=== PATIENT | male | born 1960 | race Caucasian/White ===

== ENCOUNTER 2017-01-14 11:03 | Emergency (ER) ==
[2017-01-14 12:14] LABS: URINE MICRO REVIEW NEEDED? NO; URINE SOURCE CLEAN CATCH
[2017-01-14 12:14] LABS: MANUAL DIFF NEEDED? NO
[2017-01-14 12:21] LABS: BASO% 0.1 % (0.0-0.8); EOS# 0.03 X1000 (0.0-0.7); EOS% 0.3 % (0.0-10.0); HEMATOCRIT 32.9 % (42.0-52.0); HEMOGLOBIN 10.5 g/dL (14.0-18.0); LYMPH# 0.99 X1000 (1.2-3.4); LYMPH% 9.9 % (20.5-51.1); MCH 27.3 PG (27-31); MCHC 31.9 g/dL (33-37); MCV 85.5 FL (81-99); MONO# 1.22 X1000 (0.11-0.59); MONO% 12.2 % (1.7-9.3); MPV 10.4 FL (7.4-10.4); NEUT% 77.5 % (42.2-75.2); PLT 240 X1000 (130-400); RBC 3.85 XMIL (4.7-6.1)
[2017-01-14 12:25] LABS: BILIRUBIN URINE NEGATIVE (NEGATIVE); BLOOD URINE SMALL (NEGATIVE); COLOR YELLOW; GLUCOSE URINE NEGATIVE (NEGATIVE); LEUKOCYTES URINE SMALL (NEGATIVE); NITRITE URINE NEGATIVE (NEGATIVE); PROTEIN URINE 100 mg/dL (NEGATIVE); SP GRAVITY URINE 1.029; TURBIDITY URINE CLEAR (CLEAR); UR EPITHELIAL CELLS <10 /HPF (<10); URINE BACTERIA 2+ /HPF; URINE CULTURE NEEDED? YES; URINE RBC <10 /HPF (<10); UROBILINOGEN URINE 3 mg/dL (NORMAL)
[2017-01-14 12:33] LABS: INR 1.05; PROTIME 10.7 Seconds (9.2-11.7); PTT 34.7 Seconds (22.0-36.0)
[2017-01-14 12:34] LABS: AGAP 9; ALBUMIN 2.9 g/dL (3.5-5.0); ALKALINE PHOSPHATASE 118 U/L (32-122); BUN 13 mg/dL (8-22); CHLORIDE 100 mmol/L (98-107); COSMO 278; GOT 29 U/L (10-34); GPT 40 U/L (10-44); MAGNESIUM 1.7 mg/dL (1.5-2.7); POTASSIUM 3.2 mmol/L (3.5-5.1); SODIUM 137 mmol/L (136-145); TCO2 28 mmol/L (25-35); TOTAL BILIRUBIN 0.56 mg/dL (0.20-1.00); TOTAL PROTEIN 6.4 g/dL (6.3-8.3)
[2017-01-14] MEDS ORDERED: TYLENOL ONE (14:12)
[2017-01-14] MEDS ORDERED: TYLENOL PO ONE ×2 (14:15→19:46)
[2017-01-14 16:00] LABS: ALLEN TEST YES; BE 4.2 mmoll (-3.0-3.0); BLOOD TYPE ARTERIAL; DRAW SITE R RADIAL; METHB 2.1 % (0.0-1.5); PCO2(98.6) 40 mmHg (35-45); PO2(98.6) 83 mmHg (60-100); SAMPLE BLOOD; SAO2 97.3 % (95.0-100.0); THB 11.3 g/dL (11.5-17.4); pH(98.6) 7.46 (7.35-7.45)
[2017-01-14 16:03] LABS: MODALITY ROOM AIR
--- NOTE | 2017-01-14 16:11 | PROVIDER DOCUMENTATION ---
HPI-General Adult - General Source: patient, family - History of Present Illness -Gen Adult Nature of Presenting Problems: Pt is a 56 yom that had right knee replacement on January 04 reports pt came home from rehab on tuesday and has been doing good until a few days ago and reports pt on Tuesday had to go back to [facility] due to the percocet wasn't helping the pain and pt was talking out of his head. Pt reports ultrasound was done negative DVT. pt was sent home on and that since tuesday pt still talking out of his head. states subjective fever for past 2 days with weakness. reports that it hurts to walk on right knee. Pt reports he doesn't take eloquis anymore since surgery that he take two aspirin daily.Pt is febrile on arrival 102.9 Location of Pain/Injury: reports: lower extremity (right), generalized Quality of Pain: reports: aching Severity: reports: moderate Onset/Duration: reports: 2 days ago Timing: reports: still present Similar Symptoms Previously?: Yes Recently seen or treated by another doctor?: Yes <Marcos Asif - Last Filed: 01/14/17 17:49> <Jose Carlos Velazquez - Last Filed: 01/14/17 18:14> <Trey Chiu - Last Filed: 01/14/17 19:20> - General Chief Complaint: Post Op Complaint Stated Complaint: POST OP COMPLAINT Time Seen by Provider: 01/14/17 15:12 Allergies/Adverse Reactions: Patient Allergies Allergy/AdvReac Type Severity Reaction Status Date / Time No Known Allergies Allergy Verified 01/14/17 16:02 Home Medications: Home Medication List Medication Instructions Recorded Confirmed Last Taken Type Aspirin 325 mg PO DAILY 01/14/17 01/14/17 01/14/17 History Bupropion HCl [Bupropion HCl ER] 150 mg PO DAILY 01/14/17 01/14/17 01/14/17 History Diltiazem HCl [Cartia Xt] 180 mg PO DAILY 01/14/17 01/14/17 01/14/17 History Docusate Sodium [Colace] 100 mg PO BID PRN PRN 01/14/17 01/14/17 01/14/17 History Furosemide 40 mg PO DAILY PRN 01/14/17 01/14/17 Unknown History Hydrocodone/Acetaminophen [[place] 1 each PO Q4H PRN 01/14/17 01/14/17 01/14/17 History 10-325 Tablet] Imipramine HCl 25 mg PO QHS 01/14/17 01/14/17 01/13/17 History Lorazepam 0.5 mg PO TID PRN 01/14/17 01/14/17 Unknown History Meloxicam 15 mg PO DAILY 01/14/17 01/14/17 01/14/17 History Metaxalone 800 mg PO Q8H PRN 01/14/17 01/14/17 Unknown History Metoprolol Tartrate 50 mg PO BID 01/14/17 01/14/17 01/14/17 History Multivitamins/Minerals [Centrum 1 each PO DAILY 01/14/17 01/14/17 01/14/17 History Silver] Oxycodone HCl/Acetaminophen 1 each PO Q4H PRN 01/14/17 01/14/17 Unknown History [Percocet 10-325 mg Tablet] Pantoprazole [Protonix] 40 mg PO DAILY@0700 01/14/17 01/14/17 01/14/17 History Pioglitazone [Actos] 30 mg PO DAILY 01/14/17 01/14/17 01/14/17 History Potassium Chloride 10 meq PO DAILY PRN 01/14/17 01/14/17 Unknown History Pravastatin Sodium 80 mg PO QHS 01/14/17 01/14/17 01/13/17 History Promethazine [Phenergan] 25 mg PO Q6H PRN PRN 01/14/17 01/14/17 Unknown History Quetiapine Fumarate 50 mg PO QHS 01/14/17 01/14/17 01/13/17 History Ranitidine [Zantac] 150 mg PO BID PRN 01/14/17 01/14/17 Unknown History Ropinirole HCl [Requip] 8 mg PO QHS 01/14/17 01/14/17 01/13/17 History Solifenacin Succinate [Vesicare] 10 mg PO DAILY 01/14/17 01/14/17 01/14/17 History Sotalol HCl [Betapace AF] 80 mg PO BID 01/14/17 01/14/17 01/14/17 History Temazepam 30 mg PO QHS 01/14/17 01/14/17 01/13/17 History Review of Systems - Adult - REVIEW OF SYSTEMS - ADULT Constitutional: reports: fever, other (general weakness). denies: chills, fatique, night sweats, weight loss Eyes: reports: no symptoms reported Ears, Nose, Mouth & Throat: denies: ear pain, sinus problem, throat pain Cardiovascular: reports: no symptoms reported Respiratory: reports: no symptoms reported Gastrointestinal: denies: abdominal pain, difficulty swallowing, frequent heartburn, nausea Genitourinary: denies: dysuria, flank pain, frequent UTI's, hematuria, urgency Musculoskeletal: reports: see HPI, joint pain (right knee), muscle weakness. denies: frequent leg cramps, muscle aches, neck pain Integumentary: reports: no symptoms reported Neurological: reports: no symptoms reported Psychiatric: reports: no symptoms reported Endocrine: reports: no symptoms reported Hematologic/Lymphatic: reports: no symptoms reported Allergic/Immunologic: reports: no symptoms reported All Other Systems: Reviewed and Negative <Marcos Asif - Last Filed: 01/14/17 17:49> Past History - Adult - PAST MEDICAL HISTORY-ADULT Review of Records: reports: Nursing Assessment Review, Medications Reviewed Major Childhood Illnesses: reports: denies history Cardiovascular: reports: CAD, HTN, hyperlipidemia Respiratory: reports: denies history Gastrointestinal: reports: denies history Obstetrical/Gynecological: reports: denies history Genitourinary: reports: other (BPH) Musculoskeletal: reports: chronic pain (back and knees) Neurological: reports: denies history Endocrine/Immune: reports: Diabetes Other Conditions: reports: denies history - PRIOR SURGERIES/PROCEDURES Surgical/Procedure History: reports: orthopedic (extremity) (right and left knee ) - IMMUNIZATION STATUS Childhood Immunizations: See Nurse Assessment Flu Vaccine: See Nurse Assessment - SOCIAL HISTORY Smoking: denies Substance Use: alcohol Alcohol Use Frequency: 3-4 times a week <Marcos Asif - Last Filed: 01/14/17 17:49> Physical Exam-General - PHYSICAL EXAM-ADULT Initial Vital Signs Reviewed: Yes - CONSTITUTIONAL General Appearance: alert, mild distress, obese. negative: appears well - EYES Eyes: PERRL/EOMI - HEAD, EARS, NOSE, MOUTH & THROAT HENMT: moist mucous membranes, pharynx normal - RESPIRATORY Respiratory: chest non-tender, lungs clear, normal breath sounds, no pleuratic chest pain, no respiratory distress, no accessory muscle use - CARDIOVASCULAR Cardiovascular: tachycardia - GASTROINTESTINAL (ABDOMEN) Abdominal Exam: non tender, soft, no organomegaly, no pulsatile mass - MUSCULOSKELETAL Extremity: normal capillary refill, erythema (right knee mild erythema and warm to touch.), other (Effusion to right knee warm to touch erythemic.Healing surgical scar) Peripheral Pulses: dorsalis-pedis (R): 2+, dorsalis-pedis (L): 2+ - SKIN Integumentary: normal color, normal turgor, warm/dry - PSYCHIATRIC Psych/Mental Status: normal mood/affect, normal thought content, normal thought process <Marcos Asif - Last Filed: 01/14/17 17:49> Progress - PLAN OF CARE/RESULTS Progress/Plan/Lab Results: Orders Category Date Time Status Saline Loc NOW Care 01/14/17 11:32 Active EXTREM LOWER W/CONTRAST [CT] Stat Exams 01/14/17 15:54 Ordered ABG [RESP] Routine Lab 01/14/17 15:55 Completed BLOOD CULTURE [BLDCUL] Stat Lab 01/14/17 11:56 Results CBC WITH ELECTRONIC DIFF [HEME] Stat Lab 01/14/17 11:55 Completed COMPREHENSIVE METABOLIC PANEL [CHEM] Stat Lab 01/14/17 11:55 Completed CRP [C REACTIVE PROT QUANT] [CHEM] Stat Lab 01/14/17 11:55 Received MAGNESIUM [CHEM] Stat Lab 01/14/17 11:55 Completed PROTIME WITH INR [COAG] Stat Lab 01/14/17 11:55 Completed PTT [COAG] Stat Lab 01/14/17 11:55 Completed SED RATE [HEME] Stat Lab 01/14/17 11:55 Received URINALYSIS W/POSS RFLX CULT [URINALYSIS] Stat Lab 01/14/17 11:30 Completed URINE CULTURE [RM] Routine Lab 01/14/17 13:25 Received Acetaminophen [Tylenol] Med 01/14/17 14:15 Discontinued 325 mg PO NOW ONE Acetaminophen [Tylenol] Med 01/14/17 14:12 Discontinued 650 mg .ROUTE .STK-MED ONE Vital Signs - 24 hr 01/14/17 01/14/17 11:08 15:59 Temperature 102.9 F H 99.3 F Pulse Rate 118 H 93 H Respiratory 18 22 Rate Blood Pressure 133/62 153/79 O2 Sat by Pulse 96 100 Oximetry Laboratory Tests 01/14/17 01/14/17 01/14/17 11:30 11:55 11:55 WBC 9.97 RBC 3.85 L Hgb 10.5 L Hct 32.9 L MCV 85.5 MCH 27.3 MCHC 31.9 L RDW Std Deviation 14.5 Plt Count 240 MPV 10.4 Neut % (Auto) 77.5 H Lymph % (Auto) 9.9 L [place] % (Auto) 12.2 H Eos % (Auto) 0.3 Baso % (Auto) 0.1 Neut # (Auto) 7.72 H Lymph # (Auto) 0.99 L [place] # (Auto) 1.22 H Eos # (Auto) 0.03 Baso # (Auto) 0.01 PT 10.7 INR 1.05 PTT (Actin FS) 34.7 Specimen Type Sample Site pH pCO2 pO2 HCO3 Base Excess Oxyhemoglobin ABG O2 Sat (Calculated) ABG O2 Saturation ABG Carboxyhemoglobin ABG Methemoglobin Jose C Test A-a O2 Difference Total Hemoglobin Lactate Blood Gas Modality FiO2 % Sodium Potassium Chloride Carbon Dioxide Anion Gap BUN Creatinine Estimated GFR/1.73 m2 BUN/Creatinine Ratio Glucose Calculated Osmolality Calcium Magnesium Total Bilirubin AST ALT Alkaline Phosphatase Total Protein Albumin Globulin Albumin/Globulin Ratio Urine Source CLEAN CATCH Urine Color YELLOW Urine Turbidity CLEAR Urine pH 6.0 Ur Specific [place] 1.029 Urine Protein 100 A Ur Glucose (Stick) NEGATIVE Ur Ketones (Stick) NEGATIVE Urine Blood SMALL A Urine Nitrite NEGATIVE Urine Bilirubin NEGATIVE Urobilinogen Dipstick 3 A Urine Leukocytes SMALL A Urine WBC (Auto) 10-20 A Urine RBC (Auto) <10 U Epithel Cells (Auto) <10 Urine Bacteria (Auto) 2+ 01/14/17 01/14/17 11:55 15:55 WBC RBC Hgb Hct MCV MCH MCHC RDW Std Deviation Plt Count MPV Neut % (Auto) Lymph % (Auto) [place] % (Auto) Eos % (Auto) Baso % (Auto) Neut # (Auto) Lymph # (Auto) [place] # (Auto) Eos # (Auto) Baso # (Auto) PT INR PTT (Actin FS) Specimen Type ARTERIAL Sample Site R RADIAL pH 7.46 H pCO2 40 pO2 83 HCO3 28.1 H Base Excess 4.2 H Oxyhemoglobin 93.9 L ABG O2 Sat (Calculated) 15.0 ABG O2 Saturation 97.3 ABG Carboxyhemoglobin 1.40 ABG Methemoglobin 2.1 H Jose C Test YES A-a O2 Difference 17.0 Total Hemoglobin 11.3 L Lactate 1.20 Blood Gas Modality ROOM AIR FiO2 % 21.0 Sodium 137 Potassium 3.2 L Chloride 100 Carbon Dioxide 28 Anion Gap 9 BUN 13 Creatinine 0.9 Estimated GFR/1.73 m2 > 60 BUN/Creatinine Ratio 14 Glucose 171 H Calculated Osmolality 278 Calcium 8.0 L Magnesium 1.7 Total Bilirubin 0.56 AST 29 ALT 40 Alkaline Phosphatase 118 Total Protein 6.4 Albumin 2.9 L Globulin 3.5 Albumin/Globulin Ratio 0.8 Urine Source Urine Color Urine Turbidity Urine pH Ur Specific [place] Urine Protein Ur Glucose (Stick) Ur Ketones (Stick) Urine Blood Urine Nitrite Urine Bilirubin Urobilinogen Dipstick Urine Leukocytes Urine WBC (Auto) Urine RBC (Auto) U Epithel Cells (Auto) Urine Bacteria (Auto) Laboratory Tests 01/14/17 01/14/17 01/14/17 11:30 11:55 11:55 WBC 9.97 RBC 3.85 L Hgb 10.5 L Hct 32.9 L MCV 85.5 MCH 27.3 MCHC 31.9 L RDW Std Deviation 14.5 Plt Count 240 MPV 10.4 Neut % (Auto) 77.5 H Lymph % (Auto) 9.9 L [place] % (Auto) 12.2 H Eos % (Auto) 0.3 Baso % (Auto) 0.1 Neut # (Auto) 7.72 H Lymph # (Auto) 0.99 L [place] # (Auto) 1.22 H Eos # (Auto) 0.03 Baso # (Auto) 0.01 PT 10.7 INR 1.05 PTT (Actin FS) 34.7 Specimen Type Sample Site pH pCO2 pO2 HCO3 Base Excess Oxyhemoglobin ABG O2 Sat (Calculated) ABG O2 Saturation ABG Carboxyhemoglobin ABG Methemoglobin Jose C Test A-a O2 Difference Total Hemoglobin Lactate Blood Gas Modality FiO2 % Sodium Potassium Chloride Carbon Dioxide Anion Gap BUN Creatinine Estimated GFR/1.73 m2 BUN/Creatinine Ratio Glucose Calculated Osmolality Calcium Magnesium Total Bilirubin AST ALT Alkaline Phosphatase C-Reactive Prot, Quant Total Protein Albumin Globulin Albumin/Globulin Ratio Urine Source CLEAN CATCH Urine Color YELLOW Urine Turbidity CLEAR Urine pH 6.0 Ur Specific [place] 1.029 Urine Protein 100 A Ur Glucose (Stick) NEGATIVE Ur Ketones (Stick) NEGATIVE Urine Blood SMALL A Urine Nitrite NEGATIVE Urine Bilirubin NEGATIVE Urobilinogen Dipstick 3 A Urine Leukocytes SMALL A Urine WBC (Auto) 10-20 A Urine RBC (Auto) <10 U Epithel Cells (Auto) <10 Urine Bacteria (Auto) 2+ 01/14/17 01/14/17 01/14/17 11:55 11:55 15:55 WBC RBC Hgb Hct MCV MCH MCHC RDW Std Deviation Plt Count MPV Neut % (Auto) Lymph % (Auto) [place] % (Auto) Eos % (Auto) Baso % (Auto) Neut # (Auto) Lymph # (Auto) [place] # (Auto) Eos # (Auto) Baso # (Auto) PT INR PTT (Actin FS) Specimen Type ARTERIAL Sample Site R RADIAL pH 7.46 H pCO2 40 pO2 83 HCO3 28.1 H Base Excess 4.2 H Oxyhemoglobin 93.9 L ABG O2 Sat (Calculated) 15.0 ABG O2 Saturation 97.3 ABG Carboxyhemoglobin 1.40 ABG Methemoglobin 2.1 H Jose C Test YES A-a O2 Difference 17.0 Total Hemoglobin 11.3 L Lactate 1.20 Blood Gas Modality ROOM AIR FiO2 % 21.0 Sodium 137 Potassium 3.2 L Chloride 100 Carbon Dioxide 28 Anion Gap 9 BUN 13 Creatinine 0.9 Estimated GFR/1.73 m2 > 60 BUN/Creatinine Ratio 14 Glucose 171 H Calculated Osmolality 278 Calcium 8.0 L Magnesium 1.7 Total Bilirubin 0.56 AST 29 ALT 40 Alkaline Phosphatase 118 C-Reactive Prot, Quant 358.53 H Total Protein 6.4 Albumin 2.9 L Globulin 3.5 Albumin/Globulin Ratio 0.8 Urine Source Urine Color Urine Turbidity Urine pH Ur Specific [place] Urine Protein Ur Glucose (Stick) Ur Ketones (Stick) Urine Blood Urine Nitrite Urine Bilirubin Urobilinogen Dipstick Urine Leukocytes Urine WBC (Auto) Urine RBC (Auto) U Epithel Cells (Auto) Urine Bacteria (Auto) Laboratory Tests 01/14/17 01/14/17 01/14/17 11:30 11:55 11:55 WBC 9.97 RBC 3.85 L Hgb 10.5 L Hct 32.9 L MCV 85.5 MCH 27.3 MCHC 31.9 L RDW Std Deviation 14.5 Plt Count 240 MPV 10.4 Neut % (Auto) 77.5 H Lymph % (Auto) 9.9 L [place] % (Auto) 12.2 H Eos % (Auto) 0.3 Baso % (Auto) 0.1 Neut # (Auto) 7.72 H Lymph # (Auto) 0.99 L [place] # (Auto) 1.22 H Eos # (Auto) 0.03 Baso # (Auto) 0.01 ESR PT 10.7 INR 1.05 PTT (Actin FS) 34.7 Specimen Type Sample Site pH pCO2 pO2 HCO3 Base Excess Oxyhemoglobin ABG O2 Sat (Calculated) ABG O2 Saturation ABG Carboxyhemoglobin ABG Methemoglobin Jose C Test A-a O2 Difference Total Hemoglobin Lactate Blood Gas Modality FiO2 % Sodium Potassium Chloride Carbon Dioxide Anion Gap BUN Creatinine Estimated GFR/1.73 m2 BUN/Creatinine Ratio Glucose Calculated Osmolality Calcium Magnesium Total Bilirubin AST ALT Alkaline Phosphatase C-Reactive Prot, Quant Total Protein Albumin Globulin Albumin/Globulin Ratio Urine Source CLEAN CATCH Urine Color YELLOW Urine Turbidity CLEAR Urine pH 6.0 Ur Specific [place] 1.029 Urine Protein 100 A Ur Glucose (Stick) NEGATIVE Ur Ketones (Stick) NEGATIVE Urine Blood SMALL A Urine Nitrite NEGATIVE Urine Bilirubin NEGATIVE Urobilinogen Dipstick 3 A Urine Leukocytes SMALL A Urine WBC (Auto) 10-20 A Urine RBC (Auto) <10 U Epithel Cells (Auto) <10 Urine Bacteria (Auto) 2+ 01/14/17 01/14/17 01/14/17 11:55 11:55 11:55 WBC RBC Hgb Hct MCV MCH MCHC RDW Std Deviation Plt Count MPV Neut % (Auto) Lymph % (Auto) [place] % (Auto) Eos % (Auto) Baso % (Auto) Neut # (Auto) Lymph # (Auto) [place] # (Auto) Eos # (Auto) Baso # (Auto) ESR 87 H PT INR PTT (Actin FS) Specimen Type Sample Site pH pCO2 pO2 HCO3 Base Excess Oxyhemoglobin ABG O2 Sat (Calculated) ABG O2 Saturation ABG Carboxyhemoglobin ABG Methemoglobin Jose C Test A-a O2 Difference Total Hemoglobin Lactate Blood Gas Modality FiO2 % Sodium 137 Potassium 3.2 L Chloride 100 Carbon Dioxide 28 Anion Gap 9 BUN 13 Creatinine 0.9 Estimated GFR/1.73 m2 > 60 BUN/Creatinine Ratio 14 Glucose 171 H Calculated Osmolality 278 Calcium 8.0 L Magnesium 1.7 Total Bilirubin 0.56 AST 29 ALT 40 Alkaline Phosphatase 118 C-Reactive Prot, Quant 358.53 H Total Protein 6.4 Albumin 2.9 L Globulin 3.5 Albumin/Globulin Ratio 0.8 Urine Source Urine Color Urine Turbidity Urine pH Ur Specific [place] Urine Protein Ur Glucose (Stick) Ur Ketones (Stick) Urine Blood Urine Nitrite Urine Bilirubin Urobilinogen Dipstick Urine Leukocytes Urine WBC (Auto) Urine RBC (Auto) U Epithel Cells (Auto) Urine Bacteria (Auto) 01/14/17 15:55 WBC RBC Hgb Hct MCV MCH MCHC RDW Std Deviation Plt Count MPV Neut % (Auto) Lymph % (Auto) [place] % (Auto) Eos % (Auto) Baso % (Auto) Neut # (Auto) Lymph # (Auto) [place] # (Auto) Eos # (Auto) Baso # (Auto) ESR PT INR PTT (Actin FS) Specimen Type ARTERIAL Sample Site R RADIAL pH 7.46 H pCO2 40 pO2 83 HCO3 28.1 H Base Excess 4.2 H Oxyhemoglobin 93.9 L ABG O2 Sat (Calculated) 15.0 ABG O2 Saturation 97.3 ABG Carboxyhemoglobin 1.40 ABG Methemoglobin 2.1 H Jose C Test YES A-a O2 Difference 17.0 Total Hemoglobin 11.3 L Lactate 1.20 Blood Gas Modality ROOM AIR FiO2 % 21.0 Sodium Potassium Chloride Carbon Dioxide Anion Gap BUN Creatinine Estimated GFR/1.73 m2 BUN/Creatinine Ratio Glucose Calculated Osmolality Calcium Magnesium Total Bilirubin AST ALT Alkaline Phosphatase C-Reactive Prot, Quant Total Protein Albumin Globulin Albumin/Globulin Ratio Urine Source Urine Color Urine Turbidity Urine pH Ur Specific [place] Urine Protein Ur Glucose (Stick) Ur Ketones (Stick) Urine Blood Urine Nitrite Urine Bilirubin Urobilinogen Dipstick Urine Leukocytes Urine WBC (Auto) Urine RBC (Auto) U Epithel Cells (Auto) Urine Bacteria (Auto) - XRAY 1 XRAY: Right XRAY Study: Knee Impression: Abnormal (no fx. Cellulitis. small sprapetallar effusion. Questionalble 2cm area of vague increased denisty in the extensor digitorum lonus anteiror to the fibula head. May simply be an artifact but could reprsent a small fluid collection.) <Marcos Asif - Last Filed: 01/14/17 17:49> - CONSULTS/PCP/HOSPITALIST Notification #1 *Consult/PCP/Hospitalist*: Dr. Krishna (Hospitalist) Time Discussed: 18:04 Consult Disposition: Admit (Dr. Krishna requests a consult with pt's orthapedist before accepting pt for admit.) - CHANGE OF SHIFT REPORT (ED Provider) Report Given and Care Transferred to:: Dr. Alexis Time of Transfer: 18:00 Items Pending: Physician Consult/Arrival <Jose Carlos Velazquez - Last Filed: 01/14/17 18:14> - PLAN OF CARE/RESULTS Progress/Plan/Lab Results: Discussed with Dr Krishna, he rec pt be eval by orthopedist. Have Discussed with Dr Purcell @ [facility]. He has arranged for Mr Plaza to be direct admit to Dr Alvarez (hospitalist) and he will be consult to eval knee. <Trey Chiu - Last Filed: 01/14/17 19:20> Departure - Departure Time of Disposition Order: 17:50 <Marcos Asif - Last Filed: 01/14/17 17:49> - Departure Time of Disposition Order: 18:04 Certified Medical Emergency: Emergent <Jose Carlos Velazquez - Last Filed: 01/14/17 18:14> - Departure Time of Disposition Order: 19:16 Certified Medical Emergency: Emergent <Trey Chiu - Last Filed: 01/14/17 19:20> - Departure DIAGNOSIS: Prosthetic joint infection Fever Qualifiers: Fever type: post-procedural Qualified Code(s): R50.82 - Postprocedural fever Disposition: [facility] 02 Condition: Stable Additional Instructions: ED Follow Up Instructions: You have been treated by a care provider in the Emergency Department. These instructions are being provided to you so you can have an understanding of how to care for yourself upon discharge. Upon discharge from the Emergency Department, you are responsible for making arrangements for follow-up care by a physician of your choice. Take all prescribed medications as directed. Return to the Emergency Department immediately for any new or worsening symptoms. You may call the Physician Referral phone number at [phone] to obtain a list of Physicians who are taking new patients. Referrals: Rishi Carrion MD [Primary Care Provider] - Attestation - Scribe Verification/Attestation Scribe:: Marcos Asif Acting as Scribe for:: Trey Chiu Scribe documention review:: This chart was documented by a scribe and accurately reflects the service the provider performed and the decisions made by the provider. <Marcos Asif - Last Filed: 01/14/17 17:49> - Scribe Verification/Attestation Scribe:: Jose Carlos Velazquez Acting as Scribe for:: Alvin Alexis Scribe documention review:: This chart was documented by a scribe and accurately reflects the service the provider performed and the decisions made by the provider. <Jose Carlos Velazquez - Last Filed: 01/14/17 18:14> Physician Attestation - Physician Attestation I, the provider, attest to the following statement:: Trey Chiu Physician documentation Attestation:: This documentation recorded by the scribe accurately reflects the service I personally performed and the decisions made by me. <Trey Chiu - Last Filed: 01/14/17 19:20>
[2017-01-14] MEDS ORDERED: MORPHINE IV ONE (17:45)
--- NOTE | 2017-01-14 18:02 | Diag Imaging Result Document ---
PROCEDURE NAME: MORTEZA LOWER W/CONTRAST - 01/14/2017 CT RIGHT KNEE WITH CONTRAST: FINDINGS: There is a large amount of metallic artifact in the knee created from an orthopedic prosthesis. There is good alignment to the femoral and tibial components. There is at least a small suprapatellar effusion. There is subcutaneous edema in the fat about the knee. No fracture. No dislocation. Questionable vague hyperdense area anterior to the fibular head in the extensor digitorum longus muscle. No air within this. IMPRESSION: 1. No acute fracture. 2. Subcutaneous edema with a small suprapatellar effusion which may indicate cellulitis. 3. Questionable area in the extensor digitorum longus measuring approximately 2 x 2cm which may simply be an artifact but could represent a small fluid collection or infection. A preliminary report was given at 4:42 p.m. MTDD
[2017-01-14] MEDS ORDERED: ZOSYN 4.5 GM/NS 100 ML IV ONE (18:09)
[2017-01-14 20:37] VITALS: BP 146/62
--- NOTE | 2017-01-15 10:44 | Diag Imaging Result Document ---
PROCEDURE NAME: CHEST-PORTABLE - 01/14/2017 PORTABLE CHEST: COMPARISON: 04/02/2016. FINDINGS: Heart size is normal. Inspiration is mildly shallow. The lungs appear clear. There is no pleural effusion or pneumothorax seen. IMPRESSION: Mildly shallow inspiration. No other evidence of acute disease.
== END 2017-01-14 20:30 | disposition short-term general hospital (02) ==
LOC: ED 11:03
DX: T84.53XA Infection and inflammatory reaction due to internal right knee prosthesis, initial encounter (principal); R50.82 Postprocedural fever; M25.561 Pain in right knee; M62.81 Muscle weakness (generalized); L53.9 Erythematous condition, unspecified; M25.461 Effusion, right knee; I25.10 Atherosclerotic heart disease of native coronary artery without angina pectoris; I10 Essential (primary) hypertension; E78.5 Hyperlipidemia, unspecified; G89.29 Other chronic pain; M54.9 Dorsalgia, unspecified; M25.562 Pain in left knee; E11.9 Type 2 diabetes mellitus without complications; E66.9 Obesity, unspecified; Z79.82 Long term (current) use of aspirin; Z79.899 Other long term (current) drug therapy; Z98.890 Other specified postprocedural states
CPT/HCPCS: 71010; 73701; 80053; 81001; 82805; 83735; 85025; 85610; 85651; 85730; 86140; 87040; 87077; 87088; 87186; 96365; 96375; J2270; J2543; Q9967